=== PATIENT | female | born 1990 ===

== ENCOUNTER 2021-12-13 09:57 | Emergency (ER) | payer MEDICAID ==
[2021-12-13] MEDS: Ondansetron 4 MG/2 ML SDV IVPUSH ONE (10:33)
[2021-12-13] MEDS: Sodium Chloride 0.9% 10 ML Syringe FLUSH PRN (10:34)
[2021-12-13] MEDS: Lactated Ringers 1,000 ML IV ONE (10:37)
[2021-12-13 11:00] LABS: CHLORIDE,CL 101 mmol/L (98-107); SODIUM,NA 135 mmol/L (136-145)
[2021-12-13 11:03] LABS: ANION GAP 12.8 meq/L (7-15)
[2021-12-13 11:37] LABS: CORONAVIRUS COVID-19 NAA NEGATIVE (NEGATIVE); RESPIRATORY SYNCYTIAL VIR NAA NEGATIVE (NEGATIVE)
[2021-12-13] MEDS: Magnesium Sulfate/Water 2 GM in Premix Bag 1 BAG IV ONE (11:37)
[2021-12-13] MEDS: Glucose Gel 15 GM in 37.5 GM Tube PO ONE (11:37)
== END 2021-12-13 12:34 | disposition home or self-care (01) ==
LOC: LL.ED 09:57
DX: O21.9 Vomiting of pregnancy, unspecified (principal); Z91.040 Latex allergy status; Z20.822 Contact with and (suspected) exposure to COVID-19; Z3A.00 Weeks of gestation of pregnancy not specified
CPT/HCPCS: 0241U; 36415; 80053; 83690; 83735; 84703; 85025; 86140; 87086; 96365; 96375; 99284; A9270; J2405; J3475; J7120

== ENCOUNTER 2021-12-28 17:26 | Emergency (ER) | payer MEDICAID | END 2021-12-28 18:00 | disposition home or self-care (01) | LOC: LL.ED 17:26 | DX: O9A.23 Injury, poisoning and certain other consequences of external causes complicating the puerperium (principal); S61.212A Laceration without foreign body of right middle finger without damage to nail, initial encounter; Z91.040 Latex allergy status; Z3A.00 Weeks of gestation of pregnancy not specified; W26.8XXA Contact with other sharp object(s), not elsewhere classified, initial encounter | CPT/HCPCS: 12001; 99282-25; 99283 ==

== ENCOUNTER 2022-07-16 12:06 | Emergency (ER) | payer MEDICAID ==
[2022-07-16] MEDS ORDERED: Ketorolac 30 MG/ML SDV IM ONE (12:10)
[2022-07-16] MEDS ORDERED: Prochlorperazine 10 MG/2 ML SDV IM ONE (12:11)
[2022-07-16 13:12] LABS: CORONAVIRUS COVID-19 NAA NEGATIVE (NEGATIVE); RESPIRATORY SYNCYTIAL VIR NAA NEGATIVE (NEGATIVE)
== END 2022-07-16 13:45 | disposition home or self-care (01) ==
LOC: LL.ED 12:06
DX: J18.9 Pneumonia, unspecified organism (principal); Z91.040 Latex allergy status; Z20.822 Contact with and (suspected) exposure to COVID-19
CPT/HCPCS: 0241U; 71046; 99284; 99285

== ENCOUNTER → 2022-08-09 | Emergency (ER) | payer MEDICAID ==
[2022-08-29 11:06] LABS: CORONAVIRUS COVID-19 NAA NEGATIVE (NEGATIVE); RESPIRATORY SYNCYTIAL VIR NAA NEGATIVE (NEGATIVE)
[2022-08-29 11:07] LABS: ANION GAP 10.5 meq/L (7-15); CHLORIDE,CL 107 mmol/L (98-107); ESTIMATED GFR 122 mL/min (>=60); SODIUM,NA 144 mmol/L (136-145)
== END ==
LOC: LL.ED 21:00
DX: K50.00 Crohn's disease of small intestine without complications (principal); E66.9 Obesity, unspecified; Z90.49 Acquired absence of other specified parts of digestive tract; Z20.822 Contact with and (suspected) exposure to COVID-19
CPT/HCPCS: 0241U; 36415; 74022; 74177; 80053; 82150; 83605; 83690; 85025; 99284; 96374; 96375